=== PATIENT | male | born 1950 | race Caucasian/White ===

== ENCOUNTER → 2021-11-07 | Day surgery (SDC) | payer MEDICARE ==
[~2021-11-07] VITALS: Ht 180.3 cm; Wt 92.0 kg
[~2021-11-07] MED LIST: ASPI-630 PO; CRESTOR5 MG PO; IV RINGERS,LACTATED 1000ML 1,000 ML IV SCH; PROPOFOL 10 MG/ML (20ML) VIAL. IV ONE; SILD20TA4 PO
[2021-11-07 07:39] VITALS: BP 127/86
--- NOTE | 2021-11-07 08:12 | PDOC2 ---
CONSULT Date of Consult Date of Consult DATE: 11/07/21 TIME: 08:08 Reason for Consult Reason for Consult: CRC screening History of Present Illness Reason for Visit: 71 year old male seen with above. He has daily bowel movements without diarrhea or constipation. Weight and appetite are stable No melena and/or hematochezia is present. No family history of colon cancer is present. He otherwise is without additional complaints. Past Medical History Cardiovascular: Hyperlipidemia Past Surgical History Past Surgical History: Tonsillectomy Family History Family History: Heart Disease (father) Social History Quit ALCOHOL: rare Current Medications Current Medications Current Medications Ringer's Solution 1,000 ml @ 100 mls/hr Q10H IV Last administered on 11/07/21at 07:45; Start 11/07/21 at 07:45; Stop 11/08/21 at 07:44 Active Scripts Active Reported Sildenafil (Sildenafil Citrate) 20 Mg Tablet 40 Mg PO TID PRN Crestor (Rosuvastatin Calcium) 5 Mg Tablet 10 Mg PO HS Aspirin 81 Mg Tab.chew 81 Mg PO DAILY Allergies Allergies: Coded Allergies: No Known Drug Allergies (Unverified , 11/07/21) ROS Musculoskeletal: Yes Joint Pain Physical Exam General: Alert, Oriented X3 Lungs: Clear to auscultation Heart: Normal S1, Normal S2 Abdomen: Normal bowel sounds, Soft, No tenderness Vitals VITALS Vital Signs Date Time Temp Pulse Resp B/P (MAP) Pulse Ox O2 Delivery O2 Flow Rate FiO2 11/07/21 07:39 98.1 72 17 99 98.1 Assessment/Plan Assessment/Plan CRC screening- is recommended at this time. R/B discussed with patient who is willing to proceed. ALY WALTERS MD November 07, 2021 08:12
[2021-11-07 08:56] VITALS: BP 126/67
== END | disposition home or self-care (01) ==
LOC: ENDOS 07:18
PROVIDERS: ATTEND Internal Medicine Gastroenterology
DX: Z12.11 Encounter for screening for malignant neoplasm of colon (principal); K64.0 First degree hemorrhoids; E78.5 Hyperlipidemia, unspecified; Z98.890 Other specified postprocedural states; Z79.899 Other long term (current) drug therapy
CPT/HCPCS: 45378; G0121; J2704